=== PATIENT | female | born 1995 | race Caucasian/White ===

== ENCOUNTER 2017-10-05 22:10 | Emergency (ER) | payer OTHER ==
[2017-10-06 01:08] LABS: Urine Bacteria Absent (Absent); Urine Bilirubin Negative (Negative); Urine Glucose Negative (Negative); Urine Nitrite Negative (Negative)
[2017-10-06 01:38] VITALS: BP 116/75
--- NOTE | 2017-10-06 11:23 | ED ---
Back Pain - HPI Summary HPI Summary: Patient presents to the ED with CC of mid thoracic back pain. Recently dx with mono last week and concerned with her spleen. She states she picked up her backpack and felt a strain in the mid throacic back. She states this was near her spleen and was concerned with a rupture. She denies urinary symptoms, pain in the abdomen or other complaints. Other than fatigue, she states she feels OK. Denies fevers, sweats or chills. - History of Current Complaint Chief Complaint: EDBackInjuryPain Stated Complaint: MONO/ LT FLANK PAIN Time Seen by Provider: 10/06/17 00:11 Hx Obtained From: Patient Onset/Duration: Sudden Onset Onset/Duration: Started Hours Ago Timing: Constant Back Pain Location: Is Diffuse - left thoracic back Pain Intensity: 0 Pain Scale Used: 0-10 Numeric Character: Aching Aggravating Symptom(s): Movement Alleviating Symptom(s): Rest Associated Signs And Symptoms: Positive: Negative - Risk Factors AAA Risk Factors: Negative TAD Risk Factors: Negative Cauda Equina Risk Factors: Negative Epidural Abscess Risk Factors: Negative - Allergies/Home Medications Allergies/Adverse Reactions: Allergies Allergy/AdvReac Type Severity Reaction Status Date / Time No Known Allergies Allergy Verified 10/06/17 00:20 PMH/Surg Hx/FS Hx/Imm Hx Previously Healthy: Yes - Immunization History Hx Pertussis Vaccination: No Immunizations Up to Date: Unable to Obtain/Confirm Infectious Disease History: No Infectious Disease History: Denies: Traveled Outside the [place] in Last 30 Days - Social History Occupation: Unemployed Lives: With Family Alcohol Use: Occasionally Hx Substance Use: No Substance Use Type: Reports: None Hx Tobacco Use: No Smoking Status (MU): Never Smoked Tobacco Review of Systems Constitutional: Negative Negative: Fever, Chills, Fatigue Eyes: Negative Respiratory: Negative Positive: Arthralgia - left thoracic back pain Skin: Negative All Other Systems Reviewed And Are Negative: Yes Physical Exam Triage Information Reviewed: Yes Vital Signs On Initial Exam: Initial Vitals Temp Pulse Resp BP Pulse Ox 97.6 F 83 18 135/78 100 10/05/17 22:15 10/05/17 22:15 10/05/17 22:15 10/05/17 22:15 10/05/17 22:15 Vital Signs Reviewed: Yes Appearance: Positive: Well-Appearing, Well-Nourished Skin: Positive: Warm, Skin Color Reflects Adequate Perfusion Head/Face: Positive: Normal Head/Face Inspection Eyes: Positive: EOMI, SINDY, Conjunctiva Clear Neck: Positive: Supple, No Lymphadenopathy Respiratory/Lung Sounds: Positive: Clear to Auscultation, Breath Sounds Present Cardiovascular: Positive: Normal, RRR, Pulses are Symmetrical in both Upper and Lower Extremities Abdomen Description: Positive: Nontender, No Organomegaly, Soft Bowel Sounds: Positive: Present Musculoskeletal: Positive: Pain @ - left to mid thoracic back - worse on palpation Neurological: Positive: Speech Normal Psychiatric: Positive: Normal - Gutierrez Coma Scale Coma Scale Total: 15 Diagnostics - Vital Signs Vital Signs Temp Pulse Resp BP Pulse Ox 10/06/17 01:37 61 16 116/75 98 10/05/17 22:15 97.6 F 83 18 135/78 100 - Laboratory Lab Results: Lab Results 10/06/17 Range/Units 00:25 Urine Color Yellow Urine Appearance Cloudy Urine pH 5.0 (5-9) Ur Specific [place] 1.013 (1.010-1.030) Urine Protein Negative (Negative) Urine Ketones Negative (Negative) Urine Blood 1+ H (Negative) Urine Nitrate Negative (Negative) Urine Bilirubin Negative (Negative) Urine Urobilinogen Negative (Negative) Ur Leukocyte Esterase Negative (Negative) Urine WBC (Auto) Trace(0-5/hpf) (Absent) Urine RBC (Auto) Trace(0-2/hpf) (Absent) Ur Squamous Epith Cells Present H (Absent) Urine Bacteria Absent (Absent) Urine Glucose Negative (Negative) Lab Statement: Any lab studies that have been ordered have been reviewed, and results considered in the medical decision making process. Back Pain Course/Dx - Course Course Of Treatment: During the course of treatment, patient is evalauated for back pain. Abdomen soft, non-tender with no splenomegaly. No pain on deep palpation of the abdomen in all 4 quadrants. Pain on palpation to the left thoracic back on deep palpation. Treatment options explained to patient. Likely muscular strain d/t mechanism of injury. She is encouraged to use moist heat to the area. Declines medication. Patient understands the plan, voices no concerns at this time and understands the return precatuions given to them if any symptoms become worse. They are OK for discharge at this time. VS stable on discharge. - Diagnoses Differential Diagnosis/HQI/PQRI: Positive: Strain, Sprain Provider Diagnoses: Muscle strain Discharge - Discharge Plan Condition: Stable Disposition: HOME Patient Education Materials: Muscle Strain (ED) Referrals: [facility] [place] [facility] [place] [Primary Care Provider] - Additional Instructions: Urine was normal with no signs of bacteria I believe you have a muscle strain Moist heat to the area as much as possible Rest Ibuprofen 600mg three times daily If anything becomes worse - return to the ED
== END 2017-10-06 01:38 | disposition home or self-care (01) ==
LOC: ED 22:10
DX: S29.012A Strain of muscle and tendon of back wall of thorax, initial encounter (principal); M54.9 Dorsalgia, unspecified; X58.XXXA Exposure to other specified factors, initial encounter; Y93.9 Activity, unspecified; Y92.9 Unspecified place or not applicable
CPT/HCPCS: 81003; 81015; 99282